=== PATIENT | female | born 1965 | race Caucasian/White ===

== ENCOUNTER → 2017-02-10 | Outpatient (CLI) | payer BC ==
[~2017-02-10] MED LIST: ALPRAZOLAM PO; CIPRO PO; NAPROXEN PO; VICODIN 5/500 T1 TAB PO
--- NOTE | ~2017-02-10 | US5 ---
[facility] A Service of [facility] & [facility] RADIOLOGY TEXT RESULTS PATIENT: AZALEA HAZEL LOCATION: [facility] : 69 UNIT #: [id number] AGE: [address]: Kera Alfaro MD SEX: F ORDER DR: [id number] [address] [address] [id number] O MR#: [id number] Acc #: [id number] NAME: AZALEA HAZEL : 1965 SEX: F STUDY DATE/TIME: 02/10/2017 9:08 UNIT: [facility] ROOM: STUDY DESCRIPTION: US Abdominal Complete Attending Physician: Kera Alfaro M.D. Referring Physician: Kear Alfaro M.D. Ordering Physician: Kera Alfaro M.D. Primary Care Physician: Phillip Wagner Pa-C MEDICAL IMAGING REPORT This report is preliminary unless electronic signature is present. EXAM Abdominal ultrasound complete 02/10/2017 HISTORY Generalized abdominal pain for 2 months. Pain while eating for 2 months with nausea in the past week. FINDINGS The liver is homogeneous in echotexture and demonstrates no cystic or solid mass lesions. The intra and extrahepatic bile ducts are not dilated. The gallbladder contains a 2.2 cm shadowing gallstone. There is no evidence of gallbladder wall thickening or pericholecystic fluid. The common duct measures 6 mm. The pancreas and spleen are normal. The spleen measures 10 cm in greatest diameter. The visualized portions of the abdominal aorta and inferior vena cava are within normal limits. The kidneys are normal bilaterally. IMPRESSION Cholelithiasis. Dictated by... Zay Martinez M.D. THIS IS AN ELECTRONICALLY VERIFIED REPORT Zay Martinez M.D. at 02/11/2017 7:55 AM SOFY/kevin TD: 02/10/2017 15:41 JOB #: [id number] MEDICAL IMAGING REPORT Page 1 of 1
== END | disposition home or self-care (01) ==
LOC: SRAD 09:13
DX: R11.0 Nausea (principal); R10.9 Unspecified abdominal pain; K80.20 Calculus of gallbladder without cholecystitis without obstruction
CPT/HCPCS: 76700